=== PATIENT | female | born 1965 | race Caucasian/White ===

== ENCOUNTER 2017-09-26 17:43 | Emergency (ER) | payer OTHER ==
[~2017-09-26] VITALS: Ht 160 cm; Wt 72.1 kg
[2017-09-26 17:55] VITALS: BP 137/81; Ht 160 cm; Wt 72.1 kg
== END 2017-09-26 21:21 | disposition home or self-care (01) ==
LOC: ED 17:43
DX: S46.912A Strain of unspecified muscle, fascia and tendon at shoulder and upper arm level, left arm, initial encounter (principal); E11.9 Type 2 diabetes mellitus without complications; V43.52XA Car driver injured in collision with other type car in traffic accident, initial encounter; Y93.I9 Activity, other involving external motion; Y92.488 Other paved roadways as the place of occurrence of the external cause; Y99.8 Other external cause status
CPT/HCPCS: 90715